=== PATIENT | male | born 1995 | race Caucasian/White ===

== ENCOUNTER 2020-01-10 10:17 | Emergency (ER) | payer OTHER ==
[~2020-01-10] VITALS: Ht 172.7 cm; Wt 58.6 kg
[2020-01-10] MEDS ORDERED: AZITHROMYCIN 500 MG TABLET ONE ×2 (10:54→10:58)
[2020-01-10] MEDS ORDERED: CEFTRIAXONE 1,000 MG ONE (10:55)
[2020-01-10] MEDS ORDERED: CEFTRIAXONE 250 MG ONE (10:58)
[2020-01-10] MEDS ORDERED: AZITHROMYCIN 500 MG TABLET PO ONE (11:00)
[2020-01-10] MEDS ORDERED: FLUORESCEIN/BENOXINATE 5 ML DROPS OP ONE (11:00)
[2020-01-10] MEDS ORDERED: CEFTRIAXONE 250 MG IM ONE (11:00)
== END 2020-01-10 13:10 | disposition home or self-care (01) ==
LOC: MERGE 10:37 → ED 10:37
DX: H10.11 Acute atopic conjunctivitis, right eye (principal); A56.01 Chlamydial cystitis and urethritis
CPT/HCPCS: 87491; 87591; 96372; 99283; J0696

== ENCOUNTER 2020-07-16 10:11 | Emergency (ER) | payer OTHER ==
[~2020-07-16] VITALS: Ht 177.8 cm; Wt 61.4 kg
--- NOTE | 2020-07-16 10:22 | NUR ---
SEIZURE PRECAUTIONS IN PLACE
[2020-07-16] MEDS ORDERED: SODIUM CHLORIDE 0.9% 1,000ML IVBOLUS ONE (10:30)
[2020-07-16] MEDS ORDERED: SODIUM CHLORIDE FLUSH 10ML SYR IVF ONE (10:30)
[2020-07-16] MEDS ORDERED: LORazepam 2 MG/ML, 1ML IVPush ONE (10:30)
[2020-07-16] MEDS ORDERED: LORazepam 2 MG/ML, 1ML ONE (10:40)
--- NOTE | 2020-07-16 10:44 | NUR ---
PT C/O NECK PAIN, MD NOTIFIED AND ADDITIONAL CT SCAN ORDERED.
[2020-07-16 10:50] LABS: BASOPHILS % (AUTO) 1 % (0-1); EOSINOPHILS % (AUTO) 0 % (1-7); LYMPHOCYTES % (AUTO) 16 % (22-44); MEAN CORPUSCULAR HEMOGLOBIN 30.1 pg (27.5-34.5); MEAN CORPUSCULAR HGB CONC 34.5 g/dL (33.2-36.2); MEAN PLATELET VOLUME 8.2 fL (7.4-10.4); MONOCYTES % (AUTO) 5 % (2-9); NEUTROPHILS % (AUTO) 78 % (42-75); PLATELET COUNT 212 x10^3/uL (130-400); RED BLOOD COUNT 5.39 x10^6/uL (4.38-5.82); RED CELL DISTRIBUTION WIDTH 12.3 % (9.4-14.8)
[2020-07-16 10:51] LABS: MD NO
[2020-07-16 11:01] LABS: ALANINE AMINOTRANSFERASE 15 U/L (12-78); ALBUMIN 4.2 g/dL (3.4-5.0); ANION GAP 6 mmol/L (5-15); CALCIUM 9.2 mg/dL (8.5-10.1); CHLORIDE 108 mmol/L (98-107); CREATININE 1.01 mg/dL (0.7-1.3)
[2020-07-16 11:02] LABS: SALICYLATE LEVEL < 1.7 mg/dL (2.8-20.0)
[2020-07-16 11:06] LABS: ALKALINE PHOSPHATASE 62 U/L (45-117); BILIRUBIN,TOTAL 0.7 mg/dL (0.2-1.0); TOTAL PROTEIN 7.2 g/dL (6.4-8.2); TROPONIN I < 0.015 ng/mL (0.000-0.045)
[2020-07-16 11:49] LABS: AMPHETAMINE SCREEN, URINE Negative (Negative); BARBITURATE SCREEN, URINE Negative (Negative); BENZODIAZEPINE SCREEN, URINE Negative (Negative); CANNABINOID SCREEN, URINE Positive (Negative); COCAINE SCREEN, URINE Negative (Negative); METHADONE SCREEN, URINE Negative (Negative); OPIATE SCREEN, URINE Negative (Negative)
[2020-07-16] MEDS ORDERED: DIPH,PERTUSS(ACELL),TET VAC/PF 0.5 ML IM-VACC ONE ×2 (13:00→13:05)
[2020-07-16] MEDS ORDERED: OXYcodone/APAP 7.5/325MG TABLET ONE (13:13)
[2020-07-16] MEDS ORDERED: OXYcodone/APAP 7.5/325MG TABLET PO ONE (13:30)
== END 2020-07-16 13:30 | disposition home or self-care (01) ==
LOC: MERGE 10:50 → ED 10:50 → EDBD 10:50 → ED 13:30
DX: S00.83XA Contusion of other part of head, initial encounter (principal); F10.239 Alcohol dependence with withdrawal, unspecified; R56.9 Unspecified convulsions; R55 Syncope and collapse; W19.XXXA Unspecified fall, initial encounter; Y93.89 Activity, other specified; Y92.89 Other specified places as the place of occurrence of the external cause; Y99.8 Other external cause status; Y90.9 Presence of alcohol in blood, level not specified
CPT/HCPCS: 36415; 70450; 72125; 80053; 80307; 83605; 84484; 85025; 90471; 90715; 96361; 96374; 99285; J2060; J7030

== ENCOUNTER 2020-11-09 13:59 | Emergency (ER) | payer MEDICAID, OTHER ==
[~2020-11-09] VITALS: Ht 177.8 cm; Wt 64.9 kg
[2020-11-09 14:01] VITALS: BP 140/75
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
[2020-11-09] MEDS ORDERED: KETOROLAC 30 MG/1 ML IM ONE (14:30)
[2020-11-09] MEDS ORDERED: KETOROLAC 30 MG/1 ML ONE (14:37)
== END 2020-11-09 16:07 | disposition home or self-care (01) ==
LOC: ED 15:44
DX: S63.652A Sprain of metacarpophalangeal joint of right middle finger, initial encounter (principal); S63.654A Sprain of metacarpophalangeal joint of right ring finger, initial encounter; S63.656A Sprain of metacarpophalangeal joint of right little finger, initial encounter; F17.210 Nicotine dependence, cigarettes, uncomplicated; G89.11 Acute pain due to trauma; W18.39XA Other fall on same level, initial encounter; Y93.79 Activity, other specified sports and athletics; Y92.488 Other paved roadways as the place of occurrence of the external cause; Y99.8 Other external cause status
CPT/HCPCS: 73130; 96372; 99283; J1885